=== PATIENT | female | born 1985 | race African-American/Black ===

== ENCOUNTER 2016-07-26 16:53 | Emergency (ER) | payer SELFPAY ==
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
== END 2016-07-26 17:28 | disposition home or self-care (01) ==
LOC: ER 16:53
DX: S00.03XA Contusion of scalp, initial encounter (principal); S20.219A Contusion of unspecified front wall of thorax, initial encounter; V49.50XA Passenger injured in collision with unspecified motor vehicles in traffic accident, initial encounter